=== PATIENT | female | born 1975 | race Caucasian/White ===

== ENCOUNTER 2018-06-18 15:24 | Emergency (ER) | payer OTHER ==
[~2018-06-18] VITALS: Ht 160 cm; Wt 77.1 kg
[~2018-06-18 15:24] MED LIST: CIPRO500 MG PO; PROTONIX40 MG PO; ULTRACET PO
== END 2018-06-18 18:52 | disposition home or self-care (01) ==
LOC: ER 15:24
DX: S83.8X2A Sprain of other specified parts of left knee, initial encounter (principal); X50.3XXA Overexertion from repetitive movements, initial encounter; Y93.89 Activity, other specified; Y92.89 Other specified places as the place of occurrence of the external cause; Y99.8 Other external cause status

== ENCOUNTER 2018-12-16 14:59 | Emergency (ER) | payer OTHER ==
[~2018-12-16] VITALS: Ht 160 cm; Wt 77.1 kg
== END 2018-12-16 19:08 | disposition home or self-care (01) ==
LOC: ER 14:59
DX: M94.0 Chondrocostal junction syndrome [Tietze] (principal); F41.0 Panic disorder [episodic paroxysmal anxiety]

== ENCOUNTER → 2022-03-21 | Emergency (ER) | payer OTHER ==
[~2022-03-21] VITALS: Ht 162.6 cm; Wt 72.6 kg
== END | disposition home or self-care (01) ==
LOC: ER 08:30
DX: M25.512 Pain in left shoulder (principal)